=== PATIENT | female | born 1990 | race American Indian/Alaskan Native ===

== ENCOUNTER 2019-08-11 15:17 | Emergency (ER) | payer OTHER ==
[2019-08-11 16:10] VITALS: BP 128/84
--- NOTE | 2019-08-11 16:19 | Emergency Department Report ---
Blank Doc - Documentation Documentation: 28-year-old female that presents with SOB amd dizziness after recent flight. 1- This initial assessment/diagnostic orders/clinical plan/ treatment(s) is/are subject to change based on pt's health status, clinical progression and re- assessment by fellow clinical providers in the ED. Further treatment and workup at subsequent clinical provers discretion. Patient/guardians urged not to elope from ED as their condition may be serious if not clinically assessed and managed. 2- patient to go to Main ED for further eval. 3-cardiac work-up
[2019-08-11 16:52] LABS: Basophils # (Auto) 0.1 K/mm3 (0.0-0.1); Basophils % (Auto) 1.3 % (0.0-1.8); Eosinophils # (Auto) 0.1 K/mm3 (0.0-0.4); Eosinophils % (Auto) 0.9 % (0.0-4.3); Hematocrit 39.5 % (30.3-42.9); Hemoglobin 12.8 gm/dl (10.1-14.3); Lymphocytes # (Auto) 1.9 K/mm3 (1.2-5.4); Lymphocytes % (Auto) 24.3 % (13.4-35.0); Mean Corpuscular HGB Conc 32 % (30-34); Mean Corpuscular Volume 89 fl (79-97); Monocytes # (Auto) 0.4 K/mm3 (0.0-0.8); Monocytes % (Auto) 5.1 % (0.0-7.3); Platelet Count 347 K/mm3 (140-440); Red Blood Count 4.46 M/mm3 (3.65-5.03); Red Cell Distribution Width 15.6 % (13.2-15.2)
[2019-08-11 17:03] LABS: INR 0.98 (0.87-1.13)
[2019-08-11 17:04] LABS: Partial Thromboplastin Time 33.7 Sec. (24.2-36.6)
[2019-08-11 17:07] LABS: Alanine Aminotransferase 11 units/L (7-56); Albumin 4.6 g/dL (3.9-5); BUN/Creatinine Ratio 16; Blood Urea Nitrogen 13 mg/dL (7-17); Calcium 9.4 mg/dL (8.4-10.2); Hemolysis Index 3
[2019-08-11 17:31] LABS: Bacteria,Urine 4+ /HPF (Negative); Bilirubin,Urine NEG (Negative); Blood,Urine NEG (Negative); Color,Urine Amber (Yellow); Hyaline Casts,Urine 2 /LPF; Mucus,Urine 1+ /HPF; Protein,Urine <15 mg/dL mg/dL (Negative); Urobilinogen,Urine < 2.0 mg/dL (<2.0)
--- NOTE | 2019-08-11 18:23 | XRay Report ---
CHEST 2 VIEWS INDICATION / CLINICAL INFORMATION: Chest Pain. COMPARISON: None available. FINDINGS: SUPPORT DEVICES: None. HEART / MEDIASTINUM: No significant abnormality. LUNGS / PLEURA: No acute pulmonary or pleural abnormality. Calcified granuloma in the right lower lob e. No pneumothorax. ADDITIONAL FINDINGS: Right convex thoracolumbar scoliosis noted. IMPRESSION: 1. No acute findings. Signer Name: Antoine Clements MD Signed: 08/11/2019 6:18 PM Workstation Name: [id number]
== END 2019-08-11 19:50 | disposition left against medical advice (07) ==
LOC: ED 15:17
DX: R42 Dizziness and giddiness (principal); Z53.21 Procedure and treatment not carried out due to patient leaving prior to being seen by health care provider
CPT/HCPCS: 36415; 71046; 80053; 81001; 84484; 84703; 85025; 85610; 85730; 87086; 93005

== ENCOUNTER 2020-04-11 03:54 | Observation (INO) | payer OTHER ==
[2020-04-11] MEDS ORDERED: MORPHINE 4 MG/1 ML INJ IV ONE (04:01)
[2020-04-11] MEDS ORDERED: FAMOTIDINE 20 MG/2 ML INJ IV ONE (04:01)
[2020-04-11] MEDS ORDERED: ONDANSETRON 4 MG/2 ML INJ IV ONE ×2 (04:01→06:47)
--- NOTE | 2020-04-11 04:18 | Event Note ---
ED Screening Note Date of service: 04/11/20 ED Screening Note: Patient is a 29-year-old -Maced[place] female with a history of IBS and GERD who presents to the ED with complaint of acute onset persistent severe diffuse abdominal pain, worse in the periumbilical and epigastric area for the last 2 hours with nausea. Patient states that the the pain constant, persistent and severely. Patient states that she believes that her pain may be due to IBS flare although she cannot rule out any other abnormalities. Patient denies vomiting, fever, chills, diarrhea, dysuria, urinary frequency and urgency, vaginal discharge, vaginal bleeding, low back pain, chest pain, shortness of breath, cough, sore throat, headache, change in vision or dizziness. This initial assessment/diagnostic orders/clinical plan/treatment(s) is/are subject to change based on patients health status, clinical progression and re- assessment by fellow clinical providers in the ED. Further treatment and workup at subsequent clinical providers discretion. Patient/guardian urged not to elope from the ED as their condition may be serious if not clinically assessed and managed. Initial orders include: CBC, CMP, lipase, urinalysis, serum hCG
[2020-04-11 04:28] LABS: Basophils # (Auto) 0.1 K/mm3 (0.0-0.1); Basophils % (Auto) 0.9 % (0.0-1.8); Eosinophils # (Auto) 0.1 K/mm3 (0.0-0.4); Eosinophils % (Auto) 0.7 % (0.0-4.3); Hematocrit 34.2 % (30.3-42.9); Hemoglobin 11.4 gm/dl (10.1-14.3); Lymphocytes % (Auto) 37.1 % (13.4-35.0); Mean Corpuscular HGB Conc 33 % (30-34); Mean Corpuscular Volume 90 fl (79-97); Monocytes # (Auto) 0.4 K/mm3 (0.0-0.8); Monocytes % (Auto) 5.5 % (0.0-7.3); Platelet Count 324 K/mm3 (140-440); Red Blood Count 3.81 M/mm3 (3.65-5.03); Red Cell Distribution Width 15.6 % (13.2-15.2)
[2020-04-11 04:48] LABS: Alanine Aminotransferase 10 units/L (7-56); Albumin 4.2 g/dL (3.9-5); Blood Urea Nitrogen 12 mg/dL (7-17); Calcium 9.1 mg/dL (8.4-10.2); Hemolysis Index 12
[2020-04-11 05:00] LABS: BUN/Creatinine Ratio 20
--- NOTE | 2020-04-11 06:08 | Emergency Department Report ---
ED Abdominal Pain HPI - General Chief Complaint: Abdominal Pain Stated Complaint: ABD PAIN Source: patient Mode of arrival: Ambulatory Limitations: No Limitations - History of Present Illness Initial Comments: Patient is a 29-year-old -Ira[place] female with a history of IBS and GERD who presents to the ED with complaint of acute onset persistent severe diffuse abdominal pain, worse in the periumbilical and epigastric area for the last 2 hours with nausea. Patient states that the the pain constant, persistent and severely. Patient states that she believes that her pain may be due to IBS flare although she cannot rule out any other abnormalities. Patient denies vom iting, fever, chills, diarrhea, dysuria, urinary frequency and urgency, vaginal discharge, vaginal bleeding, low back pain, chest pain, shortness of breath, cough, sore throat, headache, change in vision or dizziness. MD Complaint: abdominal pain, other (nausea) -: Sudden, hour(s) (2) Location: diffuse, periumbilical Radiation: epigastric Migration to: periumbilical, epigastric Severity: severe Severity scale (0 -10): 7 Quality: cramping, sharp Consistency: constant Improves With: nothing Worsens With: nothing Associated Symptoms: denies other symptoms, nausea, anorexia. denies: vomiting, diarrhea, fever, chills, constipation, dysuria, hematemesis, hematochezia, melena, hematuria, syncope, other - Related Data LMP Date: 03/12/20 Allergies Allergy/AdvReac Type Severity Reaction Status Date / Time No Known Allergies Allergy Verified 04/11/20 06:50 ED Review of Systems ROS: Stated complaint: ABD PAIN Other details as noted in HPI Constitutional: denies: chills, fever Eyes: denies: eye pain, eye discharge, vision change ENT: denies: ear pain, throat pain Respiratory: denies: cough, shortness of breath, wheezing Cardiovascular: denies: chest pain, palpitations Endocrine: no symptoms reported Gastrointestinal: abdominal pain, nausea. denies: diarrhea Genitourinary: denies: urgency, dysuria, discharge Musculoskeletal: denies: back pain, joint swelling, arthralgia Skin: denies: rash, lesions Neurological: denies: headache, weakness, paresthesias Psychiatric: denies: anxiety, depression Hematological/Lymphatic: denies: easy bleeding, easy bruising ED Past Medical Hx - Past Medical History Previous Medical History?: Yes Hx GERD: Yes Additional medical history: SCOLIOSIS, IBS. H.pylori - Surgical History Past Surgical History?: Yes - Social History Smoking Status: Never Smoker Substance Use Type: None ED Physical Exam - General Limitations: No Limitations General appearance: alert, in no apparent distress - Head Head exam: Present: atraumatic, normocephalic, normal inspection - Eye Eye exam: Present: normal appearance, PERRL, EOMI Pupils: Present: normal accommodation - ENT ENT exam: Present: normal exam, normal orophraynx, mucous membranes moist, TM's normal bilaterally, normal external ear exam - Neck Neck exam: Present: normal inspection, full ROM. Absent: tenderness, meningismus, lymphadenopathy - Respiratory Respiratory exam: Present: normal lung sounds bilaterally. Absent: respiratory distress, wheezes, rales, rhonchi, chest wall tenderness, accessory muscle use, decreased breath sounds, prolonged expiratory - Cardiovascular Cardiovascular Exam: Present: regular rate, normal rhythm, normal heart sounds. Absent: systolic murmur, diastolic murmur, rubs, gallop - GI/Abdominal GI/Abdominal exam: Present: soft, tenderness (Palpable epigastric and periumbilical abdominal tenderness), normal bowel sounds. Absent: guarding, rebound, hyperactive bowel sounds, hypoactive bowel sounds, organomegaly - Extremities Exam Extremities exam: Present: normal inspection, full ROM, normal capillary refill - Back Exam Back exam: Present: normal inspection, full ROM. Absent: tenderness, CVA tenderness (R), CVA tenderness (L), muscle spasm, paraspinal tenderness, vertebral tenderness - Neurological Exam Neurological exam: Present: alert, oriented X3, CN II-XII intact, normal gait, reflexes normal - Psychiatric Psychiatric exam: Present: normal affect, normal mood - Skin Skin exam: Present: warm, dry, intact, normal color. Absent: rash ED Course Vital Signs 04/11/20 03:56 Temperature 98.0 F Pulse Rate 97 H Respiratory 18 Rate Blood Pressure 115/80 O2 Sat by Pulse 100 Oximetry - Reevaluation(s) Reevaluation #1: 04/11/20 06:50 Lab test results were reviewed as well as the imaging report that showed that the patient has acute appendicitis. I therefore paged and discussed the patient's case with the general surgeon on-call Dr. Bonilla who advised that the patient be admitted by the hospitalist physicians, be kept n.p.o. and that Zosyn 4.5 g IV x1 be initiated and she shall subsequently take the patient to the OR for appendectomy procedure. Reevaluation #2: 04/11/20 06:52 I therefore paged and discussed the patient's case with the hospitalist physician on-call Dr. Melendez who shall handover the patient to the dayshift hospitalist physician on-call at shift change at 0700 hrs. ED Medical Decision Making - Lab Data Result diagrams: 04/11/20 04:05 04/11/20 04:05 - Radiology Data Radiology results: report reviewed, image reviewed Findings [facility] [address] [place] [address] Cat Scan Report Signed Patient: BOUCHRA JACOBO MR#: [id number] : 1990 Acct:[id number] Age/Sex: 29 / F ADM Date: 04/11/20 Loc: ED Attending Dr: Ordering Physician: LAURA JOHNSON Date of Service: 04/11/20 Procedure(s): CT abdomen pelvis w con Accession Number(s): [id number] cc: LAURA JOHNSON CT OF THE ABDOMEN AND PELVIS WITH INTRAVENOUS CONTRAST INDICATION / CLINICAL INFORMATION: Abdominal pain. TECHNIQUE: The patient received 100 cc Omnipaque [address] scans at this location are performed using CT dose reduction for ALARA by means of automated exposure control. COMPARISON: None available. FINDINGS: ABDOMEN: The liver, spleen, gallbladder, bile ducts, pancreas, adrenal glands, kidneys and bowel demonstrate no significant abnormality. No adenopathy is seen. The lung bases are clear. PELVIS: The appendix is dilated and fluid-filled and measures approximately 7 mm transverse. I do not identify an appendicolith. There is no evidence of abscess. The distal ureters and urinary bladder are normal. The uterus and ovaries are normal in appearance. I see no evidence of diverticulitis. I do not identify a hernia. No acute osseous abnormality is present. IMPRESSION: Acute, uncomplicated appendicitis. Signer Name: Loy Tavarez MD Signed: 04/11/2020 6:12 AM Workstation Name: [id number] Transcribed By: RT Dictated By: Loy Tavarez MD Electronically Authenticated By: Loy Tavarez MD Signed Date/Time: 04/11/20611 DD/ 5 TD/TT: - Medical Decision Making This is a 29-year-old -Iraqi female with a history of IBS and GERD who presents to the ED with complaint of acute onset persistent severe diffuse abdominal pain, worse in the periumbilical and epigastric area for the last 2 hours with nausea. Patient states that the the pain constant, persistent and severely. Patient states that she believes that her pain may be due to IBS flare although she cannot rule out any other abnormalities. In the ED, patient is alert and oriented x3 and is not in distress but appears to be in significant pain, keeps shuffling [id number] and unable to sit still during the physical exam. Lab test results were reviewed and are all nonactionable. Patient was treated for pain in the ED and also given antacids and antiemetics as well as normal saline 1 L IV bolus x1. Abdomen pelvis CT scan with contrast showed the appendix that is dilated and fluid-filled and measures approximately 7 mm transverse, without evidence of abscess or appendicolith. These findings are consistent with acute, uncomplicated appendicitis. But therefore paged and discussed the patient's case with the general surgeon on-call Dr. Bonilla who advised that the patient be treated for pain, and started on Zosyn 4.5 g IV in the ED. Dr. Bonilla also advised that the patient be admitted by hospitalist and she shall consult with the patient subsequently upon admission. I therefore paged and discussed the patient's case with Dr. Melendez the hospitalist physician on-call who shall pass the patient care to the incoming [facility] hospitalist physician on-call at shift change at 0700 hrs. - Differential Diagnosis Appendicitis; GERD; Cholelithiasis; Cholecystitis; UTI; gastroenteritis Critical Care Time: Yes Critical care time in (mins) excluding proc time.: 45 Critical care attestation.: If time is entered above; I have spent that time in minutes in the direct care of this critically ill patient, excluding procedure time. ED Disposition Clinical Impression: Acute appendicitis, uncomplicated Abdominal pain Qualifiers: Abdominal location: periumbilical Qualified Code(s): R10.33 - Periumbilical pain Nausea and vomiting Qualifiers: Vomiting type: unspecified Vomiting Intractability: unspecified Qualified Code(s): R11.2 - Nausea with vomiting, unspecified GERD (gastroesophageal reflux disease) Qualifiers: Esophagitis presence: without esophagitis Qualified Code(s): K21.9 - Gastro-es ophageal reflux disease without esophagitis Disposition: OP ADMIT IP TO THIS HOSP Is pt being admited?: Yes Does the pt Need Aspirin: No Condition: Stable Instructions: Laparoscopic Appendectomy, Adult, Care After, Nausea and Vomiting, Adult, [id number], Abdominal Pain, Adult, [id number], Gastroesophageal Reflux Disease, Adult, [id number], Abdominal Pain (ED) Referrals: [facility] [Provider Group] - 3-5 Days Time of Disposition: 06:34 Print Language: BULGARIAN
--- NOTE | 2020-04-11 06:16 | Cat Scan Report ---
CT OF THE ABDOMEN AND PELVIS WITH INTRAVENOUS CONTRAST INDICATION / CLINICAL INFORMATION: Abdominal pain. TECHNIQUE: The patient received 100 cc Omnipaque [address] scans at this location are performed using CT dose reduction for ALARA by means of automated exposure control. COMPARISON: None available. FINDINGS: ABDOMEN: The liver, spleen, gallbladder, bile ducts, pancreas, adrenal glands, kidneys and bowel demo nstrate no significant abnormality. No adenopathy is seen. The lung bases are clear. PELVIS: The appendix is dilated and fluid-filled and measures approximately 7 mm transverse. I do not identify an appendicolith. There is no evidence of abscess. The distal ureters and urinary bladder a re normal. The uterus and ovaries are normal in appearance. I see no evidence of diverticulitis. I do not identify a hernia. No acute osseous abnormality is present. IMPRESSION: Acute, uncomplicated appendicitis. Signer Name: Loy Tavarez MD Signed: 04/11/2020 6:12 AM Workstation Name: [id number]
[2020-04-11] MEDS ORDERED: SODIUM CHLORIDE 0.9% 1000 ML 1,000 ML IV ONE ×2 (06:23→06:47)
[2020-04-11] MEDS ORDERED: PIPERACIL/TAZOBACTA 4.5/NS 100 4.5 GM/100 ML VIAL IV ONE (06:23)
[2020-04-11 06:28] LABS: Bilirubin,Urine NEG (Negative); Blood,Urine LG (Negative); Color,Urine Yellow (Yellow); Hyaline Casts,Urine 1 /LPF; Mucus,Urine 1+ /HPF; Urobilinogen,Urine < 2.0 mg/dL (<2.0)
[2020-04-11 06:34] LABS: RBC,Urine > 182.0 /HPF (0.0-6.0)
[2020-04-11] MEDS ORDERED: HYDROmorphone 1 MG/1 ML INJ IV ONE (06:47)
[2020-04-11] MEDS ORDERED: ACETAMINOPHEN 325 MG TAB PO PRN ×2 (06:48→07:35)
[2020-04-11] MEDS ORDERED: ONDANSETRON 4 MG/2 ML INJ IV PRN ×3 (06:48→12:44)
[2020-04-11] MEDS ORDERED: MORPHINE 2 MG/1 ML INJ IV PRN (07:35)
[2020-04-11] MEDS ORDERED: HYDROmorphone 1 MG/1 ML INJ IV PRN ×2 (07:35→12:44)
[2020-04-11] MEDS ORDERED: NALOXONE 0.4 MG/1 ML INJ IV PRN (07:35)
[2020-04-11] MEDS ORDERED: SODIUM CHLORIDE 0.9% 1000 ML 1,000 ML IV SCH (07:45)
--- NOTE | 2020-04-11 07:48 | History and Physical Report ---
History of Present Illness Date of examination: 04/11/20 Date of admission: 04/11/2020 Chief complaint: Abdominal pain History of present illness: 29-year-old -[place] female with a past medical history of scoliosis, IBS, GERD who presents with acute abdominal pain. Abdominal pain started last night around 8 PM, started to have a crampy feeling, took her omeprazole, Bentyl, tramadol without any relief. Pain increased around periumbilical area, 10/10 pain, nonradiating, sharp. Patient states that she vomited once, no hematemesis, no diarrhea, no chest pain or shortness of breath. Patient could not tolerate the pain, came to [facility] ED for evaluation. CT of the abdomen did show acute uncomplicated appendicitis without any abscess. General surgery was consulted, patient will be taken to the OR today for appendectomy. Patient was given 1 dose of Zosyn, Zofran, analgesia, and fluids. Past History Past Medical History: other (Scoliosis, IBS, GERD) Past Surgical History: Other (Left breast lumpectomy, keloid surgery on the left neck) Social history: other (Patient denies smoking cigarettes, denies illicit drug use, denies alcohol use) Family history: other (Diabetes mellitus type 2, hypertension, cancer unspecified) Medications and Allergies Allergies Allergy/AdvReac Type Severity Reaction Status Date / Time No Known Allergies Allergy Verified 04/11/20 06:50 Home Medications Medication Instructions Recorded Confirmed Last Taken Type Dicyclomine [Bentyl] 10 mg PO 04/11/20 Unknown History Omeprazole 40 mg PO 04/11/20 Unknown History traMADoL [Ultram] 50 mg PO Q6HR PRN 04/11/20 04/11/20 Unknown History Active Meds: Active Medications Acetaminophen (Acetaminophen 325 Mg Tab) 650 mg PO Q4H PRN PRN Reason: Pain MILD(1-3)/Fever >100.5/LAMB Hydromorphone HCl (Hydromorphone 1 Mg/1 Ml Inj) 0.5 mg IV Q3H PRN PRN Reason: Pain , Severe (7-10) Sodium Chloride (Nacl 0.9% 1000 Ml) 1,000 mls @ 250 mls/hr IV ONCE ONE Stop: 04/11/20 10:46 Sodium Chloride (Nacl 0.9% 1000 Ml) 1,000 mls @ 100 mls/hr IV DIRECT ROSA Morphine Sulfate (Morphine 2 Mg/1 Ml Inj) 4 mg IV Q4H PRN PRN Reason: Pain, Moderate (4-6) Naloxone HCl (Naloxone 0.4 Mg/1 Ml Inj) 0.1 mg IV Q2MIN PRN PRN Reason: Res Rate </= 8 or 02 SAT < 92% Ondansetron HCl (Ondansetron 4 Mg/2 Ml Inj) 4 mg IV Q8H PRN PRN Reason: Nausea And Vomiting Last Admin: 04/11/20 07:34 Dose: 4 mg Documented by: Ondansetron HCl (Ondansetron 4 Mg/2 Ml Inj) 4 mg IV Q8H PRN PRN Reason: Nausea And Vomiting Sodium Chloride (Sodium Chloride 0.9% 10 Ml Flush Syringe) 10 ml IV BID ROSA Sodium Chloride (Sodium Chloride 0.9% 10 Ml Flush Syringe) 10 ml IV PRN PRN PRN Reason: LINE FLUSH Sodium Chloride (Sodium Chloride 0.9% 10 Ml Flush Syringe) 10 ml IV BID ROSA Sodium Chloride (Sodium Chloride 0.9% 10 Ml Flush Syringe) 10 ml IV PRN PRN PRN Reason: LINE FLUSH Review of Systems Constitutional: weakness, poor appetite, no fever, no chills, no sweats Ears, nose, mouth and throat: headache, no sore throat, no swelling in throat, no odynophagia Cardiovascular: no chest pain, no syncope, no lightheadedness, no shortness of breath, no dyspnea on exertion Respiratory: no cough, no shortness of breath, no dyspnea on exertion, no wheezing Gastrointestinal: abdominal pain, nausea, vomiting, heartburn, no diarrhea, no constipation, no hematemesis Musculoskeletal: no neck pain, no low back pain, no muscle weakness, no myalgias Integumentary: no rash, no redness, no sores, no wounds Neurological: no weakness, no numbness, no confusion, no sensory deficit Psychiatric: no anxiety, no disorientation, no hallucinations, no depression, no anxiety attacks Hematologic/Lymphatic: no easy bruising, no easy bleeding, no lymphadenopathy, no lymphedema Allergic/Immunologic: no urticaria, no allergic rhinitis, no wheezing, no anaphylaxis Exam - Physical Exam Narrative exam: General appearance: Present: no acute distress, well-nourished - EENT Eyes: Present: PERRL, EOM intact ENT: hearing intact, clear oral mucosa Neck Supple, no masses, no pain with movement - Respiratory Respiratory effort: normal Respiratory: bilateral: CTA, negative: rales, rhonchi, wheezing - Cardiovascular Rhythm: regular Heart Sounds: Present: S1 & S2. Absent: rub, click - Extremities Extremities: no ischemia, No edema, normal temperature, normal color, Full ROM - Abdominal General gastrointestinal: Decreased bowel sounds, pain around epigastric to periumbilical area with palpation. Minimal pain and right lower abdominal quadrant with palpation. - Integumentary Integumentary: Present: clear, warm, dry, normal turgor Psychiatric Stable mood, no behavioral disturbances, no hallucinations, visual or auditory - Neurologic Neurologic: CNII-XII intact, no focal deficits, moves all extremities - Constitutional Vitals: Temp Pulse Resp BP Pulse Ox 98.0 F 97 H 18 115/80 100 04/11/20 03:56 04/11/20 03:56 04/11/20 03:56 04/11/20 03:56 04/11/20 03:56 Results - Labs CBC & Chem 7: 04/11/20 04:05 04/11/20 04:05 Labs: Laboratory Last Values WBC 8.2 K/mm3 (4.5-11.0) 04/11/20 04:05 RBC 3.81 M/mm3 (3.65-5.03) 04/11/20 04:05 Hgb 11.4 gm/dl (10.1-14.3) 04/11/20 04:05 Hct 34.2 % (30.3-42.9) 04/11/20 04:05 MCV 90 fl (79-97) 04/11/20 04:05 MCH 30 pg (28-32) 04/11/20 04:05 MCHC 33 % (30-34) 04/11/20 04:05 RDW 15.6 % (13.2-15.2) H 04/11/20 04:05 Plt Count 324 K/mm3 (140-440) 04/11/20 04:05 Lymph % (Auto) 37.1 % (13.4-35.0) H 04/11/20 04:05 [place] % (Auto) 5.5 % (0.0-7.3) 04/11/20 04:05 Eos % (Auto) 0.7 % (0.0-4.3) 04/11/20 04:05 Baso % (Auto) 0.9 % (0.0-1.8) 04/11/20 04:05 Lymph # (Auto) 3.0 K/mm3 (1.2-5.4) 04/11/20 04:05 [place] # (Auto) 0.4 K/mm3 (0.0-0.8) 04/11/20 04:05 Eos # (Auto) 0.1 K/mm3 (0.0-0.4) 04/11/20 04:05 Baso # (Auto) 0.1 K/mm3 (0.0-0.1) 04/11/20 04:05 Seg Neutrophils % 55.8 % (40.0-70.0) 04/11/20 04:05 Seg Neutrophils # 4.6 K/mm3 (1.8-7.7) 04/11/20 04:05 Sodium 136 mmol/L (137-145) L 04/11/20 04:05 Potassium 3.7 mmol/L (3.6-5.0) 04/11/20 04:05 Chloride 102.8 mmol/L (98-107) 04/11/20 04:05 Carbon Dioxide 22 mmol/L (22-30) 04/11/20 04:05 Anion Gap 15 mmol/L 04/11/20 04:05 BUN 12 mg/dL (7-17) 04/11/20 04:05 Creatinine 0.6 mg/dL (0.6-1.2) 04/11/20 04:05 Estimated GFR > 60 ml/min 04/11/20 04:05 BUN/Creatinine Ratio 20 % 04/11/20 04:05 Glucose 107 mg/dL (65-100) H 04/11/20 04:05 Calcium 9.1 mg/dL (8.4-10.2) 04/11/20 04:05 Total Bilirubin < 0.20 mg/dL (0.1-1.2) 04/11/20 04:05 AST 16 units/L (5-40) 04/11/20 04:05 ALT 10 units/L (7-56) 04/11/20 04:05 Alkaline Phosphatase 67 units/L (35-129) 04/11/20 04:05 Total Protein 7.4 g/dL (6.3-8.2) 04/11/20 04:05 Albumin 4.2 g/dL (3.9-5) 04/11/20 04:05 Albumin/Globulin Ratio 1.3 % 04/11/20 04:05 Lipase 15 units/L (13-60) 04/11/20 04:05 HCG, Qual Negative (Negative) 04/11/20 04:05 Urine Color Yellow (Yellow) 04/11/20 04:01 Urine Turbidity Slightly-cloudy (Clear) 04/11/20 04:01 Urine pH 6.0 (5.0-7.0) 04/11/20 04:01 Ur Specific [place] 1.017 (1.003-1.030) 04/11/20 04:01 Urine Protein 30 mg/dl mg/dL (Negative) 04/11/20 04:01 Urine Glucose (UA) Neg mg/dL (Negative) 04/11/20 04:01 Urine Ketones Neg mg/dL (Negative) 04/11/20 04:01 Urine Blood Lg (Negative) 04/11/20 04:01 Urine Nitrite Neg (Negative) 04/11/20 04:01 Urine Bilirubin Neg (Negative) 04/11/20 04:01 Urine Urobilinogen < 2.0 mg/dL (<2.0) 04/11/20 04:01 Ur Leukocyte Esterase Neg (Negative) 04/11/20 04:01 Urine WBC (Auto) 6.0 /HPF (0.0-6.0) 04/11/20 04:01 Urine RBC (Auto) > 182.0 /HPF (0.0-6.0) 04/11/20 04:01 U Epithel Cells (Auto) 7.0 /HPF (0-13.0) 04/11/20 04:01 Hyaline Casts 1 /LPF 04/11/20 04:01 Urine Mucus 1+ /HPF 04/11/20 04:01 Urine Yeast (Budding) Few /HPF 04/11/20 04:01 - Imaging and Cardiology CT scan - abdomen: report reviewed, other (CT of abdomen reviewed, the appendix is dilated and fluid-filled and measures approximately 7 mm transversely. No appendiceal Lith noted. No abscess. No evidence of diverticulitis. Impression is acute uncomplicated appendicitis.) Assessment and Plan Assessment and plan: 29-year-old -[place]anese female presents with acute appendicitis Plan: Acute appendicitis without abscess Patient has been made n.p.o. General surgery consulted, patient will be taken to the OR today for ap pendectomy Zosyn antibiotics x1 Analgesia, fluids, antiemetics Postop ambulation, advance diet once cleared by surgeon Irritable bowel syndrome Hold Bentyl and tramadol GERD Hold omeprazole p.o. Protonix IV Scoliosis No acute pain or flare, continue to monitor CODE STATUS: Full DVT prophylaxis: SCDs Disposition: Anticipate 2 midnight stay depending upon patient's post recovery. Advance Directives: Yes VTE prophylaxis?: Mechanical Plan of care discussed with patient/family: Yes
[2020-04-11] MEDS ORDERED: PANTOPRAZOLE 40 MG INJ IV ONE (09:00)
--- NOTE | 2020-04-11 09:48 | Consultation ---
History of Present Illness Consult date: 04/11/20 Reason for consult: abdominal pain - History of present illness History of present illness: 29 year old female who presented to ED this morning with a several hour hx of worsening abdominal pain that started at her umbilicus. She has never had this pain before. She had a CT scan that showed uncomplicated appendicitis. She has a hx of IBS for which she takes medications but says this feels different. Past History Past Medical History: other (Scoliosis, IBS, GERD) Past Surgical History: Other (Left breast lumpectomy, keloid surgery on the left neck) Social history: other (Patient denies smoking cigarettes, denies illicit drug use, denies alcohol use) Family history: other (Diabetes mellitus type 2, hypertension, cancer unspecified) Medications and Allergies Allergies Allergy/AdvReac Type Severity Reaction Status Date / Time No Known Allergies Allergy Verified 04/11/20 06:50 Home Medications Medication Instructions Recorded Confirmed Last Taken Type Dicyclomine [Bentyl] 10 mg PO 04/11/20 Unknown History Omeprazole 40 mg PO 04/11/20 Unknown History traMADoL [Ultram] 50 mg PO Q6HR PRN 04/11/20 04/11/20 Unknown History Active Meds: Active Medications Acetaminophen (Acetaminophen 325 Mg Tab) 650 mg PO Q4H PRN PRN Reason: Pain MILD(1-3)/Fever >100.5/LAMB Hydromorphone HCl (Hydromorphone 1 Mg/1 Ml Inj) 0.5 mg IV Q3H PRN PRN Reason: Pain , Severe (7-10) Sodium Chloride (Nacl 0.9% 1000 Ml) 1,000 mls @ 250 mls/hr IV ONCE ONE Stop: 04/11/20 10:46 Sodium Chloride (Nacl 0.9% 1000 Ml) 1,000 mls @ 100 mls/hr IV DIRECT ROSA Morphine Sulfate (Morphine 2 Mg/1 Ml Inj) 4 mg IV Q4H PRN PRN Reason: Pain, Moderate (4-6) Naloxone HCl (Naloxone 0.4 Mg/1 Ml Inj) 0.1 mg IV Q2MIN PRN PRN Reason: Res Rate </= 8 or 02 SAT < 92% Ondansetron HCl (Ondansetron 4 Mg/2 Ml Inj) 4 mg IV Q8H PRN PRN Reason: Nausea And Vomiting Sodium Chloride (Sodium Chloride 0.9% 10 Ml Flush Syringe) 10 ml IV BID ROSA Sodium Chloride (Sodium Chloride 0.9% 10 Ml Flush Syringe) 10 ml IV PRN PRN PRN Reason: LINE FLUSH Review of Systems - Constitutional no weight loss, no weight gain - Cardiovascular no chest pain - Respiratory no cough, no shortness of breath - Gastrointestinal abdominal pain, nausea Exam Vital Signs Temp Pulse Resp BP Pulse Ox 98.0 F 97 H 18 115/80 100 04/11/20 03:56 04/11/20 03:56 04/11/20 03:56 04/11/20 03:56 04/11/20 03:56 - General physical appearance Positive: well developed, well nourished, no distress, moderate pain - Respiratory Positive: normal expansion, normal respiratory effort - Cardiovascular Heart Sounds: Present: S1 & S2 - Extremities Extremities: no ischemia - Abdomen Abdomen: Present: soft, other (tender to palpation RLQ). Absent: distended, guarding, rigid, surgical scars Results - Labs 04/11/20 04:05 04/11/20 04:05 Abnormal lab results 04/11/20 04/11/20 Range/Units 04:05 04:05 RDW 15.6 H (13.2-15.2) % Lymph % (Auto) 37.1 H (13.4-35.0) % Sodium 136 L (137-145) mmol/L Glucose 107 H (65-100) mg/dL Diabetes panel 04/11/20 Range/Units 04:05 Sodium 136 L (137-145) mmol/L Potassium 3.7 (3.6-5.0) mmol/L Chloride 102.8 (98-107) mmol/L Carbon Dioxide 22 (22-30) mmol/L BUN 12 (7-17) mg/dL Creatinine 0.6 (0.6-1.2) mg/dL Glucose 107 H (65-100) mg/dL Calcium 9.1 (8.4-10.2) mg/dL AST 16 (5-40) units/L ALT 10 (7-56) units/L Alkaline Phosphatase 67 (35-129) units/L Total Protein 7.4 (6.3-8.2) g/dL Albumin 4.2 (3.9-5) g/dL Calcium panel 04/11/20 Range/Units 04:05 Calcium 9.1 (8.4-10.2) mg/dL Albumin 4.2 (3.9-5) g/dL Pituitary panel 04/11/20 Range/Units 04:05 Sodium 136 L (137-145) mmol/L Potassium 3.7 (3.6-5.0) mmol/L Chloride 102.8 (98-107) mmol/L Carbon Dioxide 22 (22-30) mmol/L BUN 12 (7-17) mg/dL Creatinine 0.6 (0.6-1.2) mg/dL Glucose 107 H (65-100) mg/dL Calcium 9.1 (8.4-10.2) mg/dL Adrenal panel 04/11/20 Range/Units 04:05 Sodium 136 L (137-145) mmol/L Potassium 3.7 (3.6-5.0) mmol/L Chloride 102.8 (98-107) mmol/L Carbon Dioxide 22 (22-30) mmol/L BUN 12 (7-17) mg/dL Creatinine 0.6 (0.6-1.2) mg/dL Glucose 107 H (65-100) mg/dL Calcium 9.1 (8.4-10.2) mg/dL Total Bilirubin < 0.20 (0.1-1.2) mg/dL AST 16 (5-40) units/L ALT 10 (7-56) units/L Alkaline Phosphatase 67 (35-129) units/L Total Protein 7.4 (6.3-8.2) g/dL Albumin 4.2 (3.9-5) g/dL - Imaging CT scan - abdomen: report reviewed, image reviewed CT scan - pelvis: report reviewed, image reviewed Assessment and Plan 29 year old female with acute appendicitis. Pt consented for laparoscopic appendectomy. Will take today.
--- NOTE | 2020-04-11 10:20 | Anesthesia Consultation ---
Anesthesia Consult and Med Hx Date of service: 04/11/20 - Airway Anesthetic Teeth Evaluation: Good ROM Head & Neck: Adequate Mental/Hyoid Distance: Adequate Mallampati Class: Class II Intubation Access Assessment: Probably Good - Pre-Operative Health Status ASA Pre-Surgery Classification: ASA2 Proposed Anesthetic Plan: General - Pulmonary Hx Smoking: No Hx Asthma: No Hx Respiratory Symptoms: No SOB: No COPD: No Home Oxygen Therapy: No Hx Pneumonia: No Hx Sleep Apnea: No - Cardiovascular System Hx Hypertension: No Hx Coronary Artery Disease: No Hx Heart Attack/AMI: No Hx Angina: No Hx Percutaneous Transluminal Coronary Angioplasty (PTCA): No Hx Cardia Arrhythmia: No Hx Pacemaker: No Hx Internal Defibrillator: No Hx Valvular Heart Disease: No Hx Heart Murmur: No Hx Peripheral Vascular Disease: No - Central Nervous System Hx Neuromuscular Disorder: No Hx Seizures: No CVA: No Hx Back Pain: Yes Hx Psychiatric Problems: No - Gastrointestinal Hx Ulcer: No (states "I have IBS") Hx Gastroesophageal Reflux Disease: Yes - Endocrine Hx Renal Disease: No Hx End Stage Renal Disease: No Hx Cirrhosis: No Hx Liver Disease: No Hx Insulin Dependent Diabetes: No Hx Non-Insulin Dependent Diabetes: No Hx Thyroid Disease: No Hx Hypothyroidism: No Hx Hyperthyroidism: No - Hematic Hx Anemia: Yes Hx Sickle Cell Disease: No - Other Systems Hx Alcohol Use: No (occ) Hx Substance Use: No Hx Cancer: No Hx Obesity: Yes
--- NOTE | 2020-04-11 10:24 | Anesthesia Day of Surgery ---
Anesthesia Day of Surgery - Day of Surgery Patient Examined: Yes Patient H&P Reviewed: Yes Patient is NPO: Yes
[2020-04-11] MEDS ORDERED: LIDOCAINE (1%) 10 MG/1 ML VIAL 20 ML MDV ONE (10:31)
[2020-04-11] MEDS ORDERED: BUPIVACAINE/PF (0.5%) 5 MG/1 ML 30 ML VIAL INFILTRATI ONE (10:32)
[2020-04-11] MEDS ORDERED: GLYCOPYRROLATE 0.4 MG/2 ML INJ ONE (10:36)
[2020-04-11] MEDS ORDERED: ONDANSETRON 4 MG/2 ML INJ ONE (10:36)
[2020-04-11] MEDS ORDERED: SUCCINYLCHOLINE CHLORIDE 200 MG/10 ML INJ MDV ONE (10:36)
[2020-04-11] MEDS ORDERED: ROCURONIUM 50 MG/5 ML INJ IV ONE (10:36)
[2020-04-11] MEDS ORDERED: LIDOCAINE MPF (2%) 20 MG/1 ML VIAL 5 ML ONE (10:36)
[2020-04-11] MEDS ORDERED: NEOSTIGMINE 10MG/10 ML INJ MDV ONE (10:36)
[2020-04-11] MEDS ORDERED: dexAMETHasone 20 MG/5 ML VIAL ONE (10:36)
[2020-04-11] MEDS ORDERED: propofoL 200 MG/20 ML VIAL IV ONE (10:37)
[2020-04-11] MEDS ORDERED: fentaNYL 100 MCG/2 ML INJ ONE (10:37)
[2020-04-11] MEDS ORDERED: MIDAZOLAM 2 MG/2 ML INJ ONE (10:57)
[2020-04-11] MEDS ORDERED: LIDOCAINE (1%) 10 MG/1 ML VIAL 20 ML MDV INFILTRATI ONE (11:41)
[2020-04-11] MEDS ORDERED: BUPIVACAINE/PF (0.5%) 5 MG/1 ML 10 ML VIAL INFILTRATI ONE (11:45)
[2020-04-11] MEDS ORDERED: HYDROmorphone 1 MG/1 ML INJ ONE (11:46)
[2020-04-11] MEDS ORDERED: SODIUM CHLORIDE 0.9% IRR 1,500 ML BOTTLE IR ONE (11:46)
--- NOTE | 2020-04-11 12:07 | Operative Report ---
Operative Report Operative Report: Date: 04/11/20 Primary Surgeon: Anitha Bonilla MD Procedure: Laparoscopic Appendectomy Anesthesia: GETA Pre-Operative Diagnosis: acute appendicitis Post-Operative Diagnosis: Same Indications for Procedure: 29 year old female who presented to the ED with a one day hx of abdominal pain. CT scan showed acute appendicitis, no signs of perforation or abscess. Pt signed informed consent. Description of Procedure(s): The patient was brought to the operating room and underwent general anesthesia after lower extremity SCD were placed. The abdomen was prepped and draped in the standard fashion. IV antibiotics were given and a time out was performed. Using a veress needle via a stab incision in the umbilicus, the abdomen was insuflated to a pressure of 15mmHg. Using optivew technique, a 5mm trocar was placed just superior and to the left of the umbilicus. There was no gross injury noted to any intra-abdominal structures. After which working trocars were placed under direct visualization. A 12 mm trocar was placed in left mid abdomen, and a 5 mm trocar was inserted in the suprapubic area. The patient was placed in slight Trendelenburg position and tilted towards her left side. The cecum was identified and mobilized, as well as the terminal ileum. There was no gross purulent fluid. The appendix was noted to be retrocecal. The mesoappendix was transected with the LigaSure. The appendix was then taken at its base with a white load on a laparoscopic stapler. The staple line was inspected and found to be hemostatically sound and secure. The appendix was placed in Endo Catch bag. It was then retrieved via the 12 mm trocar. The fascia was then closed using a #1 vicryl with a suture passer device. Trocars removed under direct visualization. The insufflation was then terminated. The skin incisions were closed using 4-0 Monocryl sutures. All the wounds dressed with dermabond. The patient tolerated the procedure well, was extubated and taken to the recovery room in satisfactory condition. Specimen: appendix Complications: none immediate EBl: minimal Findings: inflamed appendix with no signs or perforation or abscess
--- NOTE | 2020-04-11 12:08 | Event Note ---
Date: 04/11/20 Pt had an uneventful lap appy for uncomplicated appendicitis. She can be discharged in the AM if doing well. she will follow up with me in two weeks in the office and needs to make an appointment by calling [phone].
--- NOTE | 2020-04-11 12:48 | Post Anesthesia Evaluation ---
- Post Anesthesia Evaluation Patient Participated: Yes Airway Patent: Yes Stable Respiratory Function: Yes Nausea/Vomiting: No Temp > 96.8F: Yes Pain Manageable: Yes Adequeate Hydration: Yes Anesthesia Complications: No Block Receding Appropriately: Not Applicable Patient on Ventilator: No Other Comments: Pt A+O x 3. Vitals are stable. No distress noted. Denies pain.
[2020-04-11] MEDS: KETOROLAC 30 MG/1 ML INJ IV SCH ×2 (13:30→18:00)
[2020-04-11] MEDS: oxyCODONE /ACETAMINOPHEN 5-325MG TAB PO PRN (17:59)
[2020-04-12] MEDS: KETOROLAC 30 MG/1 ML INJ IV SCH ×2 (00:49→05:21)
[2020-04-12 08:18] VITALS: BP 124/75
[2020-04-12 08:18] LABS: Basophils % (Auto) 0.3 % (0.0-1.8); Hematocrit 34.4 % (30.3-42.9); Hemoglobin 11.3 gm/dl (10.1-14.3); Lymphocytes # (Auto) 1.9 K/mm3 (1.2-5.4); Lymphocytes % (Auto) 15.1 % (13.4-35.0); Mean Corpuscular HGB Conc 33 % (30-34); Mean Corpuscular Volume 89 fl (79-97); Monocytes # (Auto) 0.5 K/mm3 (0.0-0.8); Monocytes % (Auto) 4.2 % (0.0-7.3); Platelet Count 317 K/mm3 (140-440); Red Blood Count 3.85 M/mm3 (3.65-5.03); Red Cell Distribution Width 15.7 % (13.2-15.2)
[2020-04-12 08:37] LABS: Alanine Aminotransferase 9 units/L (7-56); Albumin 4.1 g/dL (3.9-5); Blood Urea Nitrogen 8 mg/dL (7-17); Calcium 8.7 mg/dL (8.4-10.2); Hemolysis Index 3
[2020-04-12 08:41] LABS: BUN/Creatinine Ratio 11
[2020-04-12] MEDS: oxyCODONE /ACETAMINOPHEN 5-325MG TAB PO PRN (09:19)
--- NOTE | 2020-04-12 13:45 | Discharge Summary ---
Providers - Providers Date of Admission: 04/11/20 06:48 Date of discharge: 04/12/20 Attending physician: GIO BRAVO MD 04/11/20 06:45 Consult to Physician [CONS] Stat Comment: To take patient to OR by 10:00 am Consulting Provider: TAI DUBOSE Physician Instructions: NPO; IV Abx; Pain control; Admit by hospitalist Reason For Exam: Acute appendicitis Primary care physician: CONTRACT MODELER Hospitalization Reason for admission: Abdominal pain Condition: Stable Pertinent studies: CT scan of the abdomen showing acute uncomplicated appendicitis Hospital course: 29-year-old -Cyp[place] female with a past medical history of IBS, GERD who presented with acute abdominal pain. Patient came to [facility] ED for evaluation, CT of the abdomen did show acute appendicitis. General surgery was consulted, patient was taken emergently to the OR to have appendectomy. No complications, within 24 hours, patient was eating and drinking. Pain controlled. Prescription for pain medication and Zofran given to the patient. Patient follow-up with general surgery in 2 weeks. Patient stable for discharge. Disposition: [place] TO HOME OR SELFCARE Time spent for discharge: 25 minutes Core Measure Documentation - Palliative Care Palliative Care/ Comfort Measures: Not Applicable - Core Measures Any of the following diagnoses?: none Exam - Physical Exam Narrative exam: General appearance: Present: no acute distress, well-nourished - EENT Eyes: Present: PERRL, EOM intact ENT: hearing intact, clear oral mucosa Neck Supple, no masses, no pain with movement - Respiratory Respiratory effort: normal Respiratory: bilateral: CTA, negative: rales, rhonchi, wheezing - Cardiovascular Rhythm: regular Heart Sounds: Present: S1 & S2. Absent: rub, click - Extremities Extremities: no ischemia, No edema, normal temperature, normal color, Full ROM - Abdominal General gastrointestinal: Surgical wounds intact, no bleeding, mild abdominal pain with palpation. - Integumentary Integumentary: Present: clear, warm, dry, normal turgor Psychiatric Stable mood, no behavioral disturbances, no hallucinations, visual or auditory - Neurologic Neurologic: CNII-XII intact, no focal deficits, moves all extremities - Constitutional Vitals: Temp Pulse Resp BP Pulse Ox 98.0 F 69 18 124/75 99 04/12/20 07:36 04/12/20 07:36 04/12/20 09:59 04/12/20 07:36 04/12/20 07:36 Plan Activity: no restrictions Diet: regular Wound: open to air Follow up with: [facility] [Provider Group] - 3-5 Days TAI DUBOSE MD [Staff Physician] - 14 Days Prescriptions: oxyCODONE /ACETAMINOPHEN [Percocet 5/325 mg] 2 tab PO Q6HR PRN #24 tablet PRN Reason: Pain, Moderate (4-6) Ondansetron HCl [Zofran] 4 mg PO Q8HR PRN #15 tablet PRN Reason: Nausea
--- NOTE | 2020-04-12 14:05 | Progress Note ---
Assessment and Plan POD#1 s/p lap appy for acute appendicitis. Pt may be discharged and can follow up in the office in two weeks. Pt told she can return to work in 1 week. she says she is sending [employer] paperwork to the office. Subjective Date of service: 04/12/20 Patient Reports: Positive: no new complaints, pain is less, tolerating liquids well (no acute events overnight. Pt says that food made her nausous. she is ambulating and drinking without difficulty) Objective Vital Signs - 12hr 04/12/20 04/12/20 04/12/20 04:02 06:03 07:36 Temperature 98.1 F 98.0 F Pulse Rate 74 69 Respiratory 17 18 Rate Respiratory Rate [Abdomen] Blood Pressure 124/75 Blood Pressure 117/84 [Right] O2 Sat by Pulse 97 97 99 Oximetry 04/12/20 04/12/20 04/12/20 09:00 09:19 09:59 Temperature Pulse Rate Respiratory 18 18 Rate Respiratory 18 Rate [Abdomen] Blood Pressure Blood Pressure [Right] O2 Sat by Pulse Oximetry - General physical appearance well developed, no distress, no pain - Respiratory normal expansion, normal respiratory effort - Abdomen soft, not distended, other (incisions c/d/i, appropriately tender to palpation) - Labs 04/12/20 08:00 04/12/20 08:00 Diabetes panel 04/12/20 Range/Units 08:00 Sodium 138 (137-145) mmol/L Potassium 3.9 (3.6-5.0) mmol/L Chloride 105.8 (98-107) mmol/L Carbon Dioxide 26 (22-30) mmol/L BUN 8 (7-17) mg/dL Creatinine 0.7 (0.6-1.2) mg/dL Glucose 101 H (65-100) mg/dL Calcium 8.7 (8.4-10.2) mg/dL AST 15 (5-40) units/L ALT 9 (7-56) units/L Alkaline Phosphatase 53 (35-129) units/L Total Protein 7.2 (6.3-8.2) g/dL Albumin 4.1 (3.9-5) g/dL Calcium panel 04/12/20 Range/Units 08:00 Calcium 8.7 (8.4-10.2) mg/dL Albumin 4.1 (3.9-5) g/dL Pituitary panel 04/12/20 Range/Units 08:00 Sodium 138 (137-145) mmol/L Potassium 3.9 (3.6-5.0) mmol/L Chloride 105.8 (98-107) mmol/L Carbon Dioxide 26 (22-30) mmol/L BUN 8 (7-17) mg/dL Creatinine 0.7 (0.6-1.2) mg/dL Glucose 101 H (65-100) mg/dL Calcium 8.7 (8.4-10.2) mg/dL Adrenal panel 04/12/20 Range/Units 08:00 Sodium 138 (137-145) mmol/L Potassium 3.9 (3.6-5.0) mmol/L Chloride 105.8 (98-107) mmol/L Carbon Dioxide 26 (22-30) mmol/L BUN 8 (7-17) mg/dL Creatinine 0.7 (0.6-1.2) mg/dL Glucose 101 H (65-100) mg/dL Calcium 8.7 (8.4-10.2) mg/dL Total Bilirubin 0.30 (0.1-1.2) mg/dL AST 15 (5-40) units/L ALT 9 (7-56) units/L Alkaline Phosphatase 53 (35-129) units/L Total Protein 7.2 (6.3-8.2) g/dL Albumin 4.1 (3.9-5) g/dL
== END 2020-04-12 12:43 | disposition home or self-care (01) ==
LOC: ED 03:54 → 3B-SURG 06:48 → INTOOBSV 06:48
PROVIDERS: ADMIT Hospitalist; ATTEND Family Medicine
DX: K35.80 Unspecified acute appendicitis (principal); K58.9 Irritable bowel syndrome, unspecified; K21.9 Gastro-esophageal reflux disease without esophagitis; M41.9 Scoliosis, unspecified; Z98.890 Other specified postprocedural states
CPT/HCPCS: 36415; 44970; 74177; 80053; 81001; 83690; 84703; 85025; 88304; 96361; 96365; 96375; 96376; 99291; C9113; G0378; J0330; J1100; J1170; J1885; J2250; J2270; J2405; J2543; J2704; J2710; J3010; J7030; Q9967